=== PATIENT | female | born 1985 | race Caucasian/White ===

== ENCOUNTER 2021-05-07 16:43 | Observation (INO) ==
[2021-05-07] MEDS ORDERED: Ringers Solution, Lactated 1,000 ML ONE (17:58)
[2021-05-07] MEDS ORDERED: Lidocaine HCL 4 ML Topical Solution (Laryng-O-Jet Kit Sterile Pak) TP ONE (18:05)
[2021-05-07] MEDS ORDERED: *HR* Midazolam HCl 2 MG/2 ML VIAL ONE (18:06)
[2021-05-07] MEDS ORDERED: *HR* Propofol 200 MG/20 ML VIAL IVP ONE (18:06)
[2021-05-07] MEDS ORDERED: *HR* Rocuronium Bromide 50 MG/5 ML VIAL ONE (18:08)
[2021-05-07] MEDS ORDERED: Lidocaine -MPF 2% 5 ML VIAL ONE (18:08)
[2021-05-07] MEDS ORDERED: *HR* Succinylcholine 200 MG/10 ML VIAL IVP ONE (18:08)
[2021-05-07] MEDS ORDERED: Nitroglycerin 0.4 MG TAB.SUBL SL PRN (18:09)
[2021-05-07] MEDS ORDERED: Ondansetron 4 MG/2 ML VIAL IVP PRN (18:09)
[2021-05-07] MEDS ORDERED: Naloxone 0.4 MG/ML INJ IVP PRN (18:09)
[2021-05-07] MEDS ORDERED: Albuterol 2.5 MG/3 ML NEBULIZER IH PRN (18:09)
[2021-05-07] MEDS ORDERED: *HR* FentaNYL (PF) 100 MCG/2 ML VIAL IVP PRN (18:09)
[2021-05-07] MEDS ORDERED: Bupivacaine-MPF 0.25% 10 ML VIAL ONE (18:11)
[2021-05-07] MEDS ORDERED: *HR* Meperidine 25 MG/ML SYRINGE IVP PRN (19:10)
[2021-05-07] MEDS ORDERED: Promethazine 6.25 MG in Water for inj. (sterile) 20 ML IVPB PRN (19:10)
[2021-05-07] MEDS ORDERED: ceFAZolin 2,000 MG in Water for inj. (sterile) 20 ML IVP ONE (19:41)
[2021-05-07] MEDS ORDERED: Acetaminophen IV 1,000 MG/100 ML BAG IVPB ONE (19:45)
[2021-05-07] MEDS ORDERED: Sugammadex Sodium 200 MG/2 ML VIAL IV ONE (20:19)
[2021-05-07] MEDS ORDERED: Ketorolac 30 MG/ML VIAL ONE (20:31)
[2021-05-07] MEDS: *HR* HYDROmorphone PF 0.5 MG/0.5 ML SYRINGE IVP PRN ×3 (20:52→21:09)
[2021-05-07] MEDS ORDERED: Rho Immune Globulin 1,500 UNIT SYRINGE IM ONE (21:07)
[2021-05-07] MEDS ORDERED: *HR* HYDROcodone/Acet 5/325 mg TABLET PO ONE (21:08)
[2021-05-07] MEDS ORDERED: Scopolamine Patch 1.5 MG PATCH.TD72 TD SCH (21:45)
[2021-05-08 00:15] VITALS: TEMP 98
[2021-05-08 00:17] VITALS: BP 91/48; PULSE 71; O2SAT 93
== END 2021-05-08 01:30 | disposition home or self-care (01) ==
LOC: 1NENUOBS
PROVIDERS: ADMIT Obstetrics & Gynecology; ATTEND Obstetrics & Gynecology